=== PATIENT | female | born 1965 | race Caucasian/White ===

== ENCOUNTER 2018-03-15 09:01 | Emergency (ER) | payer BC ==
--- NOTE | 2018-03-15 09:54 | EDPHYS ---
Physician Documentation [facility] Name: Yonathan Brink Age: 52 yrs Sex: Female : 1965 Arrival Date: 03/15/2018 Time: 09:04 Bed 6 Private MD: ED Physician Jacques Pugh HPI: 03/15 09:47 This 52 yrs old Female presents to ER via Ambulatory with complaints of gs Allergic Reaction - Rash to Arm. 09:47 The patient presents with cellulitis of the left bicep. Description: The affected area gs is moderate sized, confluent, erythematous, warm. Onset: The symptoms/episode began/occurred yesterday. Possible cause(s): multp injection sites from vaccinations. Associated signs and symptoms: Pertinent positives: erythema, Pertinent negatives: drainage, fever. Modifying factors: the symptoms are aggravated by touching. Severity of symptoms: At their worst the symptoms were moderate, in the emergency department the symptoms are unchanged. The patient has not experienced similar symptoms in the past. Historical: - Allergies: 09:13 Morphine; la1 - Home Meds: 09:20 budesonide oral oral [Active]; sg - PMHx: 09:13 None; la1 - Immunization history:: Adult Immunizations up to date. - Social history:: Smoking status: unknown. - Ebola Screening: : No symptoms or risks identified at this time. ROS: 09:47 All other systems are negative. gs Exam: 09:47 Head/Face: Normocephalic, atraumatic. Eyes: Pupils equal round and reactive to light, gs extra-ocular motions intact. Lids and lashes normal. Conjunctiva and sclera are non-icteric and not injected. Cornea within normal limits. Periorbital areas with no swelling, redness, or edema. ENT: Nares patent. No nasal discharge, no septal abnormalities noted. Tympanic membranes are normal and external auditory canals are clear. Oropharynx with no redness, swelling, or masses, exudates, or evidence of obstruction, uvula midline. Mucous membranes moist. Neck: Trachea midline, no thyromegaly or masses palpated, and no cervical lymphadenopathy. Supple, full range of motion without nuchal rigidity, or vertebral point tenderness. No Meningismus. Chest/axilla: Normal chest wall appearance and motion. Nontender with no deformity. No lesions are appreciated. Cardiovascular: Regular rate and rhythm with a normal S1 and S2. No gallops, murmurs, or rubs. Normal PMI, no JVD. No pulse deficits. Respiratory: Lungs have equal breath sounds bilaterally, clear to auscultation and percussion. No rales, rhonchi or wheezes noted. No increased work of breathing, no retractions or nasal flaring. Abdomen/GI: Soft, non-tender, with normal bowel sounds. No distension or tympany. No guarding or rebound. No evidence of tenderness throughout. Back: No spinal tenderness. No costovertebral tenderness. Full range of motion. MS/ Extremity: Pulses equal, no cyanosis. Neurovascular intact. Full, normal range of motion. Neuro: Awake and alert, GCS 15, oriented to person, place, time, and situation. Cranial nerves II-XII grossly intact. Motor strength 5/5 in all extremities. Sensory grossly intact. Cerebellar exam normal. Normal gait. 09:47 Constitutional: The patient appears alert, awake. 09:47 Skin: cellulitis, that is moderate, confluent, on the left arm, induration, that is mild is noted. Vital Signs: 09:13 BP 189 / 110; Pulse 86; Resp 16; Temp 98.0; Pulse Ox 99% on R/A; Weight 86.18 kg; la1 Height 5 ft. 3 in. (160.02 cm); 09:13 Body Mass Index 33.66 (86.18 kg, 160.02 cm) la1 09:13 Pt reports she is very anxious la1 MDM: 09:39 Patient medically screened. gs 09:47 Differential diagnosis: cellulitis. Data reviewed: vital signs, nurses notes. Response gs to treatment: There is no appreciated change of the patient's symptoms at this time, and as a result, I will discharge patient. 09:54 Counseling: I had a detailed discussion with the patient and/or guardian regarding: the gs presence of at least one elevated blood pressure reading (>120/80) during this emergency department visit. Special discussion: I have referred the patient to see his PCP for further evaluation of high blood pressure. Administered Medications: No medications were administered Disposition: 03/15/18 09:53 Discharged to Home. Impression: Cellulitis of left upper limb. - Condition is Stable. - Discharge Instructions: Cellulitis, Adult, Managing Your Hypertension. - Prescriptions for Keflex 500 mg Oral Capsule - take 1 capsule by ORAL route every 6 hours for 10 days; 40 capsule. - Medication Reconciliation Form, Thank You Letter, Antibiotic Education, Prescription Opioid Use form. - Follow up: Private Physician; When: 2 - 3 days; Reason: Re-evaluation by your physician. Signatures: Smooth Loyd RN Ashlee Clemons RN RN aj Attema, Lee, RN RN laJacques Squires MD MD gs Corrections: (The following items were deleted from the chart) 09:58 09:53 03/15/2018 09:53 Discharged to Home. Impression: Cellulitis of left upper limb. aj Condition is Stable. Forms are Medication Reconciliation Form, Thank You Letter, Antibiotic Education, Prescription Opioid Use. Follow up: Private Physician; When: 2 - 3 days; Reason: Re-evaluation by your physician. gs
--- NOTE | 2018-03-15 09:54 | ER ---
Nurse's Notes [facility] Name: Yonathan Brink Age: 52 yrs Sex: Female : 1965 Arrival Date: 03/15/2018 Time: 09:04 Bed 6 Private MD: Diagnosis: Cellulitis of left upper limb Presentation: 03/15 09:11 Presenting complaint: Patient states: I got vaccinations on and my temp has la1 been 99 at home and I have a rash on my arm. Transition of care: patient was not received from another setting of care. Onset: The symptoms/episode began/occurred yesterday. Anaphylaxis evaluation, no signs or symptoms of anaphylaxis were noted. Onset of symptoms was March 15, 2018. Risk Assessment: Do you want to hurt yourself or someone else? Patient reports no desire to harm self or others. Initial Sepsis Screen: Does the patient meet any 2 criteria? No. Patient's initial sepsis screen is negative. Does the patient have a suspected source of infection? No. Patient's initial sepsis screen is negative. Care prior to arrival: None. 09:11 Method Of Arrival: Ambulatory la1 09:11 Acuity: KAMLESH 5 la1 Historical: - Allergies: 09:13 Morphine; la1 - Home Meds: 09:20 budesonide oral oral [Active]; sg - PMHx: 09:13 None; la1 - Immunization history:: Adult Immunizations up to date. - Social history:: Smoking status: unknown. - Ebola Screening: : No symptoms or risks identified at this time. Screenin:56 Abuse screen: Denies threats or abuse. Denies injuries from another. Nutritional aj screening: No deficits noted. Tuberculosis screening: No symptoms or risk factors identified. Fall Risk None identified. Assessment: 09:56 General: Appears in no apparent distress. comfortable, Behavior is calm, cooperative, aj appropriate for age. Pain: Denies pain. Neuro: Level of Consciousness is awake, alert, obeys commands, Oriented to person, place, time, situation, Appropriate for age. Respiratory: Airway is patent Respiratory effort is even, unlabored, Respiratory pattern is regular, symmetrical, Breath sounds are clear. Derm: Skin is intact, is healthy with good turgor, Skin is pink, warm \T\ dry. normal, redness to left upper arm. Vital Signs: 09:13 BP 189 / 110; Pulse 86; Resp 16; Temp 98.0; Pulse Ox 99% on R/A; Weight 86.18 kg; la1 Height 5 ft. 3 in. (160.02 cm); 09:13 Body Mass Index 33.66 (86.18 kg, 160.02 cm) la1 09:13 Pt reports she is very anxious la1 ED Course: 09:04 Patient arrived in ED. rg4 09:12 Triage completed. la1 09:13 Arm band placed on right wrist. la1 09:16 Smooth Loyd, RN is Primary Nurse. sg 09:25 Jacques Pugh MD is Attending Physician. 09:53 Primary Nurse role handed off by Smooth Loyd RN 09:53 Ashlee Paul RN is Primary Nurse. aj 09:56 Adult w/ patient. aj 09:56 No provider procedures requiring assistance completed. Patient did not have IV access aj during this emergency room visit. Administered Medications: No medications were administered Outcome: 09:53 Discharge ordered by . gs 09:56 Discharged to home ambulatory. aj 09:56 Condition: good 09:56 Discharge instructions given to patient, Instructed on discharge instructions, follow up and referral plans. medication usage, Demonstrated understanding of instructions, follow-up care, medications, Prescriptions given X 1. 09:58 Patient left the ED. aj Signatures: Smooth Loyd RN RN sg Myers, Amanda, RN RN aj Attema, Lee, RN RN la1 Garcia, Rubi rg4 Jacques Pugh MD MD
[2018-03-15 10:04] VITALS: BP 189/110; TEMP 98; O2SAT 99
== END 2018-03-15 09:58 | disposition home or self-care (01) ==
LOC: ER 09:01
DX: L03.114 Cellulitis of left upper limb (principal); Z88.5 Allergy status to narcotic agent
CPT/HCPCS: 99282